=== PATIENT | male | born 1970 | race Caucasian/White ===

== ENCOUNTER → 2016-05-31 | Day surgery (SDC) | payer OTHER ==
[~2016-05-31] MED LIST: ACETAMINOPHEN/HYDROcodone 325 MG/5 MG TAB ONE; HYDR12.56 PO; KETOROLAC TROMETHAMINE 30 MG/ML (IVP) VIAL IV PUSH ONE; LACTATED RINGER'S 1000 ML INJ 1,000 ML ONE; MIDAZOLAM HCL 2 MG/2 ML VIAL ONE; NICO14DI T-DERMAL; NICO2GUM35 CHEW; ONDANSETRON HCL 4 MG/2 ML VIAL IV PUSH ONE; PRED10 PO; PROPOFOL 200 MG/20 ML AMP IV ONE; SODIUM CHLORIDE 0.9% SOLN 100 ML (PAB) BAG IV ONE; ceFAZolin INJ 1,000 MG VIAL ONE
--- NOTE | 2016-05-31 16:40 | TN ---
cc: CHAD MCMANUS M.D. DATE OF SURGERY: 05/31/2016 PREOPERATIVE DIAGNOSIS Symptomatic, enlarging umbilical hernia. POSTOPERATIVE DIAGNOSIS Symptomatic, enlarging umbilical hernia. PROCEDURE Open repair umbilical hernia with mesh. SURGEON Dr. Chad Mcmanus. PARK RANGER: LEXI Geiger. ANESTHESIA: General. INDICATIONS This is a pleasant 45-year-old gentleman who has 4-year history of the umbilical hernia is increased in size and creates discomfort. He has worn and abdominal binder for many years to support it. Plans were made for operative repair with mesh. INTRAOPERATIVE FINDINGS About 4 cm diameter umbilical hernia defect. ESTIMATED BLOOD LOSS: Estimated blood loss less than 10 ml. DESCRIPTION OF PROCEDURE IN DETAIL The patient identified as Timothy Baker taken to the operating room and placed supine position. Sequential compression devices were placed on bilateral lower extremities. Following induction of adequate general anesthesia the patient's abdomen was prepped and draped in usual sterile fashion with Betadine. A time-out procedure was performed. Following completion of time-out procedure to everyone's satisfaction within the room a proposed infraumbilical transverse incision was made with a marking pen and infiltrated local anesthetic. Local anesthetic was placed around the umbilicus. Incision was carried out with scalpel and hemostasis controlled with cautery. Dissection posteriorly umbilical skin was divided from the herniated preperitoneal fatty tissue using sharp dissection. Small bleeding points were controlled with cautery. The anterior fascia was cleared circumferentially using a subcutaneous fatty tissue and a the primary defect was approximated with interrupted inverted zero Prolene sutures. The piece of mesh about 3 x 3 inches in size and then placed in the onlay position, held in place and eight positions using zero Ethilon sutures. Sutures were placed at the 3 o'clock, 9 o'clock, 6 o'clock and 12 o'clock positions. Sutures placed in the corners using the Ethilon sutures. The wound was irrigated copiously with saline. There was no evidence of bleeding. The umbilicus was reformed with interrupted 2-0 Vicryl sutures. The skin incisions were approximated running 4-0 Monocryl subcuticular suture. Dressings were applied, Mastisol inch brown Steri-Strips, gauze and Tegaderm. Abdominal binder was placed. The patient tolerated the procedure without apparent complications. Sponge, needle and instrument counts were correct at the end of the case. MD KARELY Aranda/marilynn /3:49 PM /4:05 PM
== END | disposition home or self-care (01) ==
LOC: ESDC 12:19
PROVIDERS: ATTEND Surgery Trauma Surgery
DX: K42.9 Umbilical hernia without obstruction or gangrene (principal)
CPT/HCPCS: 00750; 49585; C1781; J0690; J1885; J2250; J2405; J3010; J7120